=== PATIENT | female | born 1945 | race Two or more races ===

== ENCOUNTER → 2018-02-26 11:33 | Outpatient (CLI) | payer OTHER | END | disposition home or self-care (01) | LOC: RAD 11:33 | DX: M54.5 Low back pain (principal) ==

== ENCOUNTER 2018-08-25 11:02 | Outpatient (CLI) | payer OTHER | END 2018-08-25 11:08 | disposition home or self-care (01) | LOC: LAB 11:02 | DX: N39.0 Urinary tract infection, site not specified (principal) ==

== ENCOUNTER → 2019-04-29 | Outpatient (CLI) | payer OTHER | END | disposition home or self-care (01) | LOC: NUCLEAR 14:30 | DX: M81.0 Age-related osteoporosis without current pathological fracture (principal) ==

== ENCOUNTER 2019-05-03 12:54 | Outpatient (CLI) | payer OTHER | END 2019-05-03 13:02 | disposition home or self-care (01) | LOC: RAD 12:54 | DX: R05 Cough (principal) ==

== ENCOUNTER 2019-12-29 10:22 | Outpatient (CLI) | payer OTHER | END 2019-12-29 10:28 | disposition home or self-care (01) | LOC: MAMO-SONO 10:22 | DX: N60.29 Fibroadenosis of unspecified breast (principal); Z12.31 Encounter for screening mammogram for malignant neoplasm of breast ==

== ENCOUNTER 2020-09-12 09:28 | Outpatient (CLI) | payer OTHER | END 2020-09-12 10:31 | disposition home or self-care (01) | LOC: SONOGRAMA 09:28 | PROVIDERS: ATTEND Internal Medicine | DX: N93.8 Other specified abnormal uterine and vaginal bleeding (principal) ==

== ENCOUNTER → 2020-09-12 09:37 | Outpatient (CLI) | payer OTHER | END | disposition home or self-care (01) | LOC: LAB 09:37 | PROVIDERS: ATTEND Internal Medicine | DX: D64.89 Other specified anemias (principal); E11.9 Type 2 diabetes mellitus without complications; E03.8 Other specified hypothyroidism; E78.2 Mixed hyperlipidemia; Z12.11 Encounter for screening for malignant neoplasm of colon; R97.1 Elevated cancer antigen 125 [CA 125]; M79.18 Myalgia, other site; R97.0 Elevated carcinoembryonic antigen [CEA] ==

== ENCOUNTER 2020-09-14 11:41 | Outpatient (CLI) | payer OTHER | END 2020-09-14 11:46 | disposition home or self-care (01) | LOC: LAB 11:41 | PROVIDERS: ATTEND Internal Medicine | DX: D64.89 Other specified anemias (principal); E11.9 Type 2 diabetes mellitus without complications; E03.8 Other specified hypothyroidism; E78.2 Mixed hyperlipidemia; Z12.11 Encounter for screening for malignant neoplasm of colon; R97.1 Elevated cancer antigen 125 [CA 125]; R97.0 Elevated carcinoembryonic antigen [CEA]; M79.18 Myalgia, other site ==

== ENCOUNTER 2020-09-18 08:20 | Outpatient (CLI) | payer OTHER | END 2020-09-18 08:24 | disposition home or self-care (01) | LOC: TOM 08:20 | PROVIDERS: ATTEND Internal Medicine | DX: J43.2 Centrilobular emphysema (principal); K44.9 Diaphragmatic hernia without obstruction or gangrene; R07.89 Other chest pain; R91.8 Other nonspecific abnormal finding of lung field | CPT/HCPCS: 71260; Q9965 ==

== ENCOUNTER 2021-01-16 10:36 | Outpatient (CLI) | payer OTHER | END 2021-01-16 15:11 | disposition home or self-care (01) | LOC: MAMO-SONO 10:36 | PROVIDERS: ATTEND Specialist | DX: R92.0 Mammographic microcalcification found on diagnostic imaging of breast (principal); N60.11 Diffuse cystic mastopathy of right breast; N60.12 Diffuse cystic mastopathy of left breast; N64.59 Other signs and symptoms in breast; R92.2 Inconclusive mammogram ==

== ENCOUNTER 2021-05-25 13:49 | Outpatient (CLI) | payer OTHER | END 2021-05-25 13:51 | disposition home or self-care (01) | LOC: NUCLEAR 13:49 | PROVIDERS: ATTEND Specialist | DX: M81.0 Age-related osteoporosis without current pathological fracture (principal) ==

== ENCOUNTER 2022-01-11 09:59 | Outpatient (CLI) | payer OTHER | END 2022-01-11 10:14 | disposition home or self-care (01) | LOC: TOM 09:59 | PROVIDERS: ATTEND Internal Medicine | DX: M54.42 Lumbago with sciatica, left side (principal) ==

== ENCOUNTER 2022-01-23 09:11 | Outpatient (CLI) | payer OTHER | END 2022-01-23 09:16 | disposition home or self-care (01) | LOC: MAMO-SONO 09:11 | PROVIDERS: ATTEND Specialist | DX: R06.02 Shortness of breath (principal); J43.2 Centrilobular emphysema; Z72.0 Tobacco use ==

== ENCOUNTER 2022-07-02 10:44 | Outpatient (CLI) | payer OTHER | END 2022-07-02 10:53 | disposition home or self-care (01) | LOC: RAD 10:44 | PROVIDERS: ATTEND Internal Medicine Rheumatology | DX: M12.1 Kaschin-Beck disease (principal) ==

== ENCOUNTER 2023-01-29 11:51 | Outpatient (CLI) | payer OTHER | END 2023-01-29 11:56 | disposition home or self-care (01) | LOC: MAMO-SONO 11:51 | PROVIDERS: ATTEND Specialist | DX: Z12.31 Encounter for screening mammogram for malignant neoplasm of breast (principal) ==

== ENCOUNTER → 2023-06-24 09:36 | Outpatient (CLI) | payer OTHER | END | disposition home or self-care (01) | LOC: NUCLEAR 09:36 | PROVIDERS: ATTEND Specialist | DX: M81.0 Age-related osteoporosis without current pathological fracture (principal) ==

== ENCOUNTER 2024-01-12 11:53 | Outpatient (CLI) | payer OTHER | END 2024-01-12 11:56 | disposition home or self-care (01) | LOC: RAD 11:53 | DX: M54.50 Low back pain, unspecified (principal) ==

== ENCOUNTER 2024-02-05 10:34 | Outpatient (CLI) | payer OTHER | END 2024-02-05 10:42 | disposition home or self-care (01) | LOC: MAMO-SONO 10:34 | PROVIDERS: ATTEND Specialist | DX: N60.11 Diffuse cystic mastopathy of right breast (principal); N60.12 Diffuse cystic mastopathy of left breast; Z12.31 Encounter for screening mammogram for malignant neoplasm of breast ==